=== PATIENT | female | born 1950 | race Caucasian/White ===

== ENCOUNTER 2017-11-05 17:48 | Emergency (ER) | payer OTHER ==
[~2017-11-05] VITALS: Ht 157.5 cm; Wt 99.8 kg
[2017-11-05] MEDS ORDERED: NEURONTIN800 MG (18:13)
[2017-11-05] MEDS ORDERED: CLONAZEPAM0.125 MG (18:13)
[2017-11-05] MEDS ORDERED: PREVACID15 MG (18:13)
[2017-11-05] MEDS ORDERED: LISINOPRIL2.5 MG (18:13)
[2017-11-05] MEDS ORDERED: RISPERDAL0.25 MG (18:13)
[2017-11-05] MEDS ORDERED: XANAX0.25 MG (18:13)
[2017-11-06] MEDS ORDERED: CIPRO500 MG PO (08:05)
[2017-11-06] MEDS ORDERED: ZESTORETIC 20-1 EAC1 PO (08:06)
== END 2017-11-06 09:10 ==
LOC: ER 17:48
DX: I10 Essential (primary) hypertension (principal); E11.65 Type 2 diabetes mellitus with hyperglycemia

== ENCOUNTER → 2022-09-24 | Outpatient (CLI) | payer OTHER ==
[~2022-09-24] MED LIST: CIPRO500 MG PO; CLONAZEPAM0.125 MG; LISINOPRIL2.5 MG; NEURONTIN800 MG; PREVACID15 MG; RISPERDAL0.25 MG; XANAX0.25 MG; ZESTORETIC 20-1 EAC1 PO
== END | disposition home or self-care (01) ==
LOC: RAD 13:22
PROVIDERS: ATTEND Surgery
DX: S99.922A Unspecified injury of left foot, initial encounter (principal); S99.921A Unspecified injury of right foot, initial encounter